=== PATIENT | male | born 1990 | race Caucasian/White ===

== ENCOUNTER 2017-06-19 10:30 | Emergency (ER) | payer BC, OTHER ==
[~2017-06-19] VITALS: Ht 185.4 cm; Wt 71.8 kg
[2017-06-19] MEDS ORDERED: KETOROLAC TROMETHAMINE 30 MG/ML VIAL IV STA (10:35)
[2017-06-19] MEDS ORDERED: SODIUM CHLORIDE 0.9% 1000ML 1,000 ML IV STA (10:35)
[2017-06-19] MEDS ORDERED: ONDANSETRON INJ 2 MG/ML 2 ML VIAL IV STA (10:35)
[2017-06-19 10:37] VITALS: TEMP 37; Ht 185.4 cm; Wt 71.8 kg
[2017-06-19 11:05] LABS: BASO % 0.1 %; BASO ABS # 0.01 K/uL (0-0.2); EOS % 0.1 %; EOS ABS # 0.01 K/uL (0-0.5); HEMATOCRIT 47.2 % (42-52); HEMOGLOBIN 16.1 g/dL (14.0-18.0); IG# 0.02 K/uL (0.00-0.02); LYMPH % 2.6 %; LYMPH ABS # 0.24 K/uL (1.2-3.4); MEAN CELL VOLUME 87.9 fL (80-100); MEAN CORPUSCULAR HGB CONC 34.1 g/dl (32-36); MEAN PLATELET VOLUME 9.2 fL (7.4-10.4); MONO % 7.7 %; MONO ABS # 0.72 K/uL (0.11-0.59); NEUT % 89.3 %; PLATELET COUNT 208 K/uL (130-400); RED CELL DISTRIBUTION WIDTH CV 13.2 % (11.5-14.5); RED CELL DISTRIBUTION WIDTH SD 42.3 fL (36.4-46.3)
[2017-06-19 11:33] LABS: CREATININE 1.27 mg/dl (0.60-1.40)
[2017-06-19 11:34] LABS: CALCIUM 9.1 mg/dl (8.5-10.1); POTASSIUM 3.9 mmol/L (3.5-5.1)
[2017-06-19 11:35] LABS: ALBUMIN 4.1 gm/dl (3.4-5.0); TOTAL PROTEIN 7.5 gm/dl (6.4-8.2)
[2017-06-19] MEDS ORDERED: ONDA4TAB10 SL (11:54)
[2017-06-19 12:21] VITALS: BP 124/60; PULSE 82; O2SAT 97
--- NOTE | 2017-06-19 15:06 | EMERGENCY ROOM VISIT NOTE ---
History First contact with patient: 10:35 Chief Complaint: ILLNESS Stated Complaint: VOMIT, DIARRHEA History of Present Illness The patient is a 26 year old male who presents to the Emergency Room with complaints of nausea, vomiting and diarrhea that came on abruptly at 4 AM this morning. The patient reports multiple episodes of watery diarrhea and vomiting. Because the patient did not feel well, he elected to call [id number] transportation. The patient did receive IV Zofran and normal saline en route. He does report feeling much better, but still has mild nausea. He denies any significant abdominal pain. He has been chilled all morning. He denies any other known sick contacts. He denies consuming any unusual food or drinks, and denies any recent foreign travel. He currently rates his overall discomfort a 5 out of 10 on my exam. Review of Systems HEENT: Denies dizziness, visual problems, hearing loss, tinnitus. Denies difficulty swallowing or oral lesions. PULMONARY: Denies cough, shortness of breath, sputum production or hemoptysis. CARDIOVASCULAR: Denies chest pain, palpitations, dyspnea on exertion, orthopnea or peripheral edema. GASTROINTESTINAL: See HPI. GENITOURINARY: Denies dysuria, frequency, urgency or nocturia. NEUROLOGIC: Denies history of epilepsy, CVA, TIA or chronic headaches. MUSCULOSKELETAL: Denies history of joint tenderness/swelling. SKIN: Denies rashes or lesions. PSYCHIATRIC: Denies history of depression or mental illness. ENDOCRINE: Denies history of diabetes or thyroid disorders. Past Medical/Surgical History Medical Problems: (1) No significant past medical history Surgical Problems: (1) No history of previous surgery Family History Unremarkable Social History Smoking Status: Never Smoker Alcohol Use: occasionally Marital Status: Housing Status: lives with family Occupation Status: employed Current/Historical Medications Scheduled Ondasetron Odt (Zofran Odt), 4 MG SL Q6H Physical Exam Vital Signs Date Time Temp Pulse Resp B/P (MAP) Pulse Ox O2 Delivery O2 Flow Rate FiO2 06/19/17 12:21 82 16 124/60 97 Room Air 06/19/17 11:46 86 16 124/64 96 Room Air 06/19/17 10:37 37.0 86 30 129/77 100 Room Air Physical Exam CONSTITUTIONAL: Healthy and well nourished. Alert and oriented X 3 with positive affect. HEENT: Normocephalic, atraumatic. Pupils equal, round and reactive. Ears and nares are clear. No scleral icterus or conjunctival injection/pallor. OROPHARYNX: Mucous membranes are dry. No tonsillar hypertrophy or exudates. NECK: Full active range of motion without discomfort. RESPIRATORY: Clear to auscultation bilaterally with no wheezing, crackles, rhonchi or stridor. CARDIOVASCULAR: Regular rate and rhythm with no murmurs, rubs or gallops. GASTROINTESTINAL: Bowel sounds present in all quadrants. The patient has minimal generalized nonfocal tenderness to palpation of the abdomen. No hepatosplenomegaly. No rigidity, guarding or rebound. MUSCULOSKELETAL: Full range of motion of all joints without discomfort. INTEGUMENTARY: No rash or other significant dermatologic conditions noted. HEMATOLOGIC: No ecchymosis or petechiae. NEUROLOGIC: No focal neurologic deficits noted. Medical Decision & Procedures Laboratory Results 06/19/17 10:50 Red Blood Count 5.37, Mean Corpuscular Volume 87.9, Mean Corpuscular Hemoglobin 30.0, Mean Corpuscular Hemoglobin Concent 34.1, Mean Platelet Volume 9.2, Neutrophils (%) (Auto) 89.3, Lymphocytes (%) (Auto) 2.6, Monocytes (%) (Auto) 7.7, Eosinophils (%) (Auto) 0.1, Basophils (%) (Auto) 0.1, Neutrophils # (Auto) 8.40, Lymphocytes # (Auto) 0.24, Monocytes # (Auto) 0.72, Eosinophils # (Auto) 0.01, Basophils # (Auto) 0.01 06/19/17 10:50 Test 06/19/17 10:50 White Blood Count 9.40 K/uL (4.8-10.8) Red Blood Count 5.37 M/uL (4.7-6.1) Hemoglobin 16.1 g/dL (14.0-18.0) Hematocrit 47.2 % (42-52) Mean Corpuscular Volume 87.9 fL (80-100) Mean Corpuscular Hemoglobin 30.0 pg (25-34) Mean Corpuscular Hemoglobin Concent 34.1 g/dl (32-36) Platelet Count 208 K/uL (130-400) Mean Platelet Volume 9.2 fL (7.4-10.4) Neutrophils (%) (Auto) 89.3 % Lymphocytes (%) (Auto) 2.6 % Monocytes (%) (Auto) 7.7 % Eosinophils (%) (Auto) 0.1 % Basophils (%) (Auto) 0.1 % Neutrophils # (Auto) 8.40 K/uL (1.4-6.5) Lymphocytes # (Auto) 0.24 K/uL (1.2-3.4) Monocytes # (Auto) 0.72 K/uL (0.11-0.59) Eosinophils # (Auto) 0.01 K/uL (0-0.5) Basophils # (Auto) 0.01 K/uL (0-0.2) RDW Standard Deviation 42.3 fL (36.4-46.3) RDW Coefficient of Variation 13.2 % (11.5-14.5) Immature Granulocyte % (Auto) 0.2 % Immature Granulocyte # (Auto) 0.02 K/uL (0.00-0.02) Anion Gap 8.0 mmol/L (3-11) Est Creatinine Clear Calc Drug Dose 87.9 ml/min Estimated GFR () 88.5 Estimated GFR (Non- 76.4 BUN/Creatinine Ratio 12.6 (10-20) Calcium Level 9.1 mg/dl (8.5-10.1) Total Bilirubin 0.9 mg/dl (0.2-1) Direct Bilirubin 0.2 mg/dl (0-0.2) Aspartate Amino Transf (AST/SGOT) 13 U/L (15-37) Alanine Aminotransferase (ALT/SGPT) 25 U/L (12-78) Alkaline Phosphatase 81 U/L (45-117) Total Protein 7.5 gm/dl (6.4-8.2) Albumin 4.1 gm/dl (3.4-5.0) Lipase 80 U/L (73-393) The above labs were reviewed, and were grossly normal. Medications Administered Medications (Trade) Dose Ordered Sig/Larissa Route Start Time Stop Time Status Last Admin Dose Admin Sodium Chloride 1,000 ml @ 999 mls/hr Q1H1M STAT IV 06/19/17 10:35 06/19/17 11:35 DC 06/19/17 10:59 999 MLS/HR Ondansetron HCl (Zofran Inj) 4 mg NOW STAT IV 06/19/17 10:35 06/19/17 10:38 DC 06/19/17 10:59 4 MG Ketorolac Tromethamine (Toradol Inj) 30 mg NOW STAT IV 06/19/17 10:35 06/19/17 10:38 DC 06/19/17 10:59 30 MG Procedure 1. IV hydration: The patient was administered a total of normal saline 2 L 2. IV medications: In addition to the Zofran that was provided en route, the patient was also administered an additional Zofran 4 mg and Toradol 30 mg IVP ED Course Patient history and physical exam were performed. Nurse's notes were reviewed. Vital signs were reviewed. IV access was established en route, and the patient had already received approximately 700 cc of normal saline and Zofran 4 mg IVP prior to my exam. The patient did report feeling better, but still had mild nausea. The patient was administered an additional liter of normal saline , Zofran 4 mg and Toradol 30 mg IVP. Review of labs show no acute findings. The patient reported good relief of his symptoms, and was tolerating oral fluids prior to discharge. The patient was advised that he likely has a viral gastroenteritis. He was encouraged to take Tylenol as needed for pain and fever. He was instructed to remain well-hydrated. The patient was provided a prescription for Zofran to prevent nausea. Clear liquid diet over the next 24 hours, then advance diet as tolerated. Return for inability to remain hydrated, or for any progressively worsening fever, abdominal pain or other concerns. The patient was happy with plan of care, and voiced understanding of all discharge instructions. Medical Decision As indicated in the previous section, I suspect viral gastroenteritis. Medication Reconcilliation Current Medication List: was personally reviewed by me Blood Pressure Screening Patient's blood pressure: Normal blood pressure Impression Primary Impression: Viral gastroenteritis Departure Information Prescriptions Ondasetron Odt (ZOFRAN ODT) 4 Mg Tab 4 MG SL Q6H for Nausea, #10 TAB Prov: Dom Rogel PA 06/19/17 Referrals No Doctor, Assigned (PCP) Patient Instructions My [facility]
== END 2017-06-19 12:23 | disposition home or self-care (01) ==
LOC: C.EDC 10:34
DX: A08.4 Viral intestinal infection, unspecified (principal)